=== PATIENT | female | born 1945 | race Asian ===

== ENCOUNTER 2017-06-15 06:29 | Day surgery (SDC) | payer OTHER, MEDICARE ==
[~2017-06-15] VITALS: Ht 165.1 cm; Wt 59.0 kg
[2017-06-15 06:49] VITALS: BP 126/74
[2017-06-15 09:35] VITALS: BP 112/80
== END 2017-06-15 09:55 | disposition home or self-care (01) ==
LOC: GI 06:29 → OR 07:30 → GI 07:30
PROVIDERS: Internal Medicine Gastroenterology
PROC: 0DJD8ZZ Inspection of Lower Intestinal Tract, Via Natural or Artificial Opening Endoscopic (ICD-10-PCS; principal; 2017-06-15 07:30)
DX: Z12.11 Encounter for screening for malignant neoplasm of colon (principal); K64.8 Other hemorrhoids
CPT/HCPCS: 45378; J1200; J1610; J2250; J2310; J3010; J3490

== ENCOUNTER 2017-08-28 07:26 | Day surgery (SDC) | payer OTHER, MEDICARE ==
[~2017-08-28] VITALS: Ht 154.9 cm; Wt 56.7 kg
[2017-08-28 07:56] VITALS: BP 123/77
[2017-08-28 10:48] VITALS: BP 123/74
== END 2017-08-28 11:20 | disposition home or self-care (01) ==
LOC: GI 07:26 → OR 09:30 → GI 11:20
PROVIDERS: Internal Medicine Gastroenterology
PROC: 0DB68ZX Excision of Stomach, Via Natural or Artificial Opening Endoscopic, Diagnostic (ICD-10-PCS; principal; 2017-08-28 09:30)
DX: R10.13 Epigastric pain (principal)
CPT/HCPCS: 43235; J1200; J1610; J2250; J2310; J3010; J3490